=== PATIENT | male | born 1980 | race African-American/Black ===

== ENCOUNTER 2024-01-15 09:11 | Emergency (ER) | payer BC, SELFPAY ==
--- NOTE | 2024-01-15 09:21 | PC.NURSE ---
Addendum entered by Ana Jimenez 01/15/24 09:21: pt usually wears glasses but was not wearing them during the exam Original Note: visual acuity done at this time. both eyes 20/30
[2024-01-15 09:24] VITALS: BP 122/80; PULSE 73; RESP 18; TEMP 36.8; O2SAT 100
--- NOTE | 2024-01-15 10:31 | ED.EYEPROB ---
HPI - Eye Problem General Chief complaint: Eye Problems Stated complaint: L eye problem Time Seen by Provider: 01/15/24 09:23 Source: patient Mode of arrival: ambulatory Limitations: no limitations History of Present Illness HPI Narrative: This is a 43-year-old male that presents to the emergency department for left eye irritation. Ongoing over the last couple of days. No known injuries or trauma. Reports he feels like he has a scratch in his eye. Reports hearing and blurry vision. Denies fevers or abnormal drainage. Related Data Allergies Allergy/AdvReac Type Severity Reaction Status Date / Time No Known Allergies Allergy Verified 01/15/24 09:30 Review of Systems Review of Systems: CONSTITUTIONAL: Denies fever EYES: Reports visual changes, redness. Denies discharge. All systems reviewed & are unremarkable except as noted in HPI and below PMFSH Past Medical History Medical History (Updated 01/15/24 @ 10:35 by Alyssa Breaux PA-C) No active medical problems Social History Social History (Updated 01/15/24 @ 10:35 by Alyssa Breaux PA-C) Substance use: never Exam Narrative: GENERAL: Well-appearing, well-nourished, and in no acute distress. HEAD: Normocephalic, atraumatic. EYES: PERRLA and EOMI. Mild left conjunctival injection. No abnormal drainage. Fluorescein stain uptake on the left with a small corneal abrasion. Eyelid everted, no foreign bodies noted. Visual acuity on the left 20/40, right 20/50 EXTREMITIES: Normal range of motion. No edema. SKIN: Warm, dry, no rash. NEURO: No focal deficits. Alert and oriented x3. PSYCH: Normal mood and affect Course Course Emergency Course: patient in agreement with plan of care Vital Signs Vital signs: Vital Signs Temperature 98.2 F 01/15/24 09:24 Pulse Rate 73 01/15/24 09:24 Respiratory Rate 18 01/15/24 09:24 Blood Pressure 122/80 01/15/24 09:24 Pulse Oximetry 100 01/15/24 09:24 Oxygen Delivery Room Air 01/15/24 09:24 Temperature 98.2 F 01/15/24 09:24 Pulse Rate 73 01/15/24 09:24 Respiratory Rate 18 01/15/24 09:24 Blood Pressure 122/80 01/15/24 09:24 Pulse Oximetry 100 03/27/24 09:24 Oxygen Delivery Room Air 01/15/24 09:24 MDM - Eye Problem MDM Narrative Medical decision making narrative: patient presents to the emergency department for left eye irritation ongoing over the last couple of days. Patient has a small corneal abrasion. No other concerning findings on exam. Will be started on topical antibiotic. Instructed to have follow-up with an workers compensation claims adjuster. He was given warnings to return to the ER Differential Diagnosis Differential diagnosis: Likely corneal abrasion and conjunctivitis Critical Care Time Critical Care Time Critical Care Time: No Discharge Plan Discharge Clinical Impression: Corneal abrasion Qualifiers: Encounter type: initial encounter Laterality: left Qualified Code(s): S05.02XA - Injury of conjunctiva and corneal abrasion without foreign body, left eye, initial encounter Patient Disposition: Home, Self-Care Condition: Stable Instructions: Antibiotic Form, Corneal Abrasion (ED) Additional Instructions: Return to the emergency department if you experience fever, redness and swelling of your eye, worsening visual problems, abnormal drainage from the eye, or any other symptoms that are concerning to you Apply antibiotic ointment as prescribed If you have any continued trouble you should follow-up with an eye doctor. [facility] if needed Prescriptions: New erythromycin 5 mg/gram (0.5 %) ointment 1 applic LEFT EYE Q6H 5 Days Qty: 3.5 0RF Follow-up/Referrals: David,Nay Casper MD [Primary Care Provider] -
[2024-01-15 11:03] VITALS: BP 120/82; PULSE 72; RESP 18; TEMP 36.9; O2SAT 100
== END 2024-01-15 11:04 | disposition home or self-care (01) ==
PROVIDERS: Emergency Provider Physician Assistant; PCP Family Medicine
DX: S05.02XA Injury of conjunctiva and corneal abrasion without foreign body, left eye, initial encounter (principal); X58.XXXA Exposure to other specified factors, initial encounter
CPT/HCPCS: 99283; A9270